=== PATIENT | female | born 1950 | race Caucasian/White ===

== ENCOUNTER 2023-12-22 17:43 | Observation (INO) | payer MEDICARE, BC, SELFPAY ==
[2023-12-22] VITALS (17 sets, daily range): BP systolic 143–193; BP diastolic 61–108; PULSE 66–116; RESP 13–28; TEMP 36.8; O2SAT 95–100; BMI 31.3
--- NOTE | 2023-12-22 17:50 | DI.RAD.S_ITS ---
PROCEDURE: XR CHEST 1V INDICATIONS: chest pain TECHNIQUE: One view of the chest was acquired. COMPARISON: None. FINDINGS: Surgical changes and devices: None. Lungs and pleura: Lungs are clear. No pleural effusions or pneumothorax. Mediastinum: Mediastinal contours appear normal. Heart size is normal. Bones and chest wall: No suspicious bony lesions. Overlying soft tissues appear unremarkable. IMPRESSION: No acute cardiopulmonary pathology. Dictated by: Jerry Franz M.D. on 12/22/2023 at 18:39 Approved by: Jerry Franz M.D. on 12/22/2023 at 18:39
--- NOTE | 2023-12-22 17:50 | EKG_ITS ---
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
--- NOTE | 2023-12-22 18:17 | ED.CHESTPAIN ---
HPI - Chest Pain General Chief Complaint: Chest Pain Stated Complaint: Poss Heart Attack Time Seen by Provider: 12/22/23 18:03 Source: patient and family Mode of arrival: Ambulatory Limitations: no limitations History of Present Illness HPI narrative: 73-year-old female with history of hypertension, hyperlipidemia presents by private vehicle from home for chest pain and shortness of breath that began at approximately 5:00 p.m.. Patient states that she was getting ready for dinner when she felt a pressure in the center of her chest and felt like it was hard to breathe. This lasted for about 30 minutes and resolved on its own. Patient has been chest pain-free since that event, but decided to present to the ER for evaluation. States that she was not have a history of heart disease, denies family history of heart disease. She has never seen a bone char kiln operator. Related Data Home Medications Medication Instructions Recorded Confirmed aspirin 81 mg tablet 81 mg PO DAILY 12/23/23 12/23/23 chlorthalidone 50 mg tablet mg DAILY 12/23/23 lisinopril 20 mg tablet mg 2XD 12/23/23 pravastatin 10 mg tablet mg 1XD 12/23/23 Allergies Allergy/AdvReac Type Severity Reaction Status Date / Time No Known Drug Allergies Allergy Verified 12/22/23 17:50 Patient History Medical History (Updated 12/23/23 @ 00:59 by Yanet Li DO) HLD (hyperlipidemia) HTN (hypertension) Social History household members: spouse Smoking Status: Never smoker Smoking Status: Never smoker alcohol intake frequency: a few times a week Substance Use Type: does not use Exam Initial Vital Signs Initial Vital Signs: Vital Signs Temperature 98.2 F 12/22/23 17:46 Pulse Rate 116 H 12/22/23 17:46 Respiratory Rate 28 H 12/22/23 17:46 Blood Pressure 193/108 H 12/22/23 17:46 Pulse Oximetry 100 12/22/23 17:46 Oxygen Delivery Method Room Air 12/22/23 17:46 Const: Awake, alert, no acute distress, nontoxic appearing Cardiac: Tachycardia, regular rhythm RESP: unlabored, clear bilaterally, no wheezing GI: Soft, nontender, nondistended, no rebound, no guarding MSK: Atraumatic, full range of motion, pulses equal Skin: Warm, Dry, intact, no rashes Neuro: AO x3, CN II-XII grossly intact, moves all extremities Course Orders Ordered: ED Orders 12/22/23 17:50 XR chest 1V Stat EKG-12 Lead Stat 12/22/23 18:12 Complete Blood Count AUTO DIFF Stat Comprehensive Metabolic Panel Stat Lipase Stat Magnesium Stat NT-proBNP (BNP-Adult 18+) Stat PTT Partial Thromboplastin Chad Stat Prothrombin Time INR Stat Troponin & CK Cardiac Panel Stat 12/22/23 19:36 Trop I [Troponin I] Stat 12/22/23 21:41 Trop I [Troponin I] Stat 12/22/23 22:34 CT angio chest PE protocol Stat Acetaminophen (Acetaminophen 325 Mg Tablet) 650 mg PO Q6H PRN PRN Reason: Fever/Mild Pain (1-3) Aspirin (Aspirin Ec 81 Mg Tablet) 81 mg PO DAILY MACK Bisacodyl (Bisacodyl 10 Mg Supp) 10 mg ME DAILY PRN PRN Reason: Constipation Docusate Sodium (Docusate 100 Mg Capsule) 100 mg PO BID MACK Enoxaparin Sodium (Enoxaparin 40 Mg/0.4 Ml Syringe) 40 mg SUBCUT DAILY MACK Morphine Sulfate (Morphine 2 Mg/Ml Inj) 2 mg IV Q5MIN PRN PRN Reason: Chest Pain Naloxone HCl (Naloxone 0.4 Mg/Ml Vial) 0.2 mg IV Q2MIN PRN PRN Reason: Opiate Reversal Nitroglycerin (Nitroglycerin 0.4 Mg Sl Tab) 0.4 mg SL R1ORLL2 PRN PRN Reason: Chest Pain Ondansetron HCl (Ondansetron 4 Mg Odt) 4 mg PO Q8HR PRN PRN Reason: Nausea And Vomiting Ondansetron HCl (Ondansetron 4 Mg/2 Ml Inj) 4 mg IV Q8HR PRN PRN Reason: Nausea And Vomiting Discontinued Medications Aspirin (Aspirin 81 Mg Chew Tab) 324 mg PO NOW ONE Stop: 12/22/23 17:51 Last Admin: 12/22/23 18:20 Dose: 324 mg Documented By: PUJA Vital Signs Vital signs: Vital Signs - 8 hr 12/22/23 17:46 12/22/23 17:54 12/22/23 18:00 Temperature 98.2 F Pulse Rate 116 H 112 H 102 H Respiratory Rate 28 H 23 19 Blood Pressure 193/108 H Pulse Oximetry 100 99 99 Oxygen Delivery Method Room Air Room Air 12/22/23 18:07 12/22/23 18:07 12/22/23 18:30 Temperature Pulse Rate 100 H 93 H Respiratory Rate 17 15 Blood Pressure 184/90 H Pulse Oximetry 99 99 Oxygen Delivery Method 12/22/23 18:30 12/22/23 19:00 12/22/23 19:00 Temperature Pulse Rate 91 H Respiratory Rate 13 Blood Pressure 172/86 H 170/86 H Pulse Oximetry 99 Oxygen Delivery Method 12/22/23 19:30 12/22/23 19:30 12/22/23 20:00 Temperature Pulse Rate 82 80 Respiratory Rate 14 17 Blood Pressure 160/80 H Pulse Oximetry 97 99 Oxygen Delivery Method 12/22/23 20:00 12/22/23 20:30 12/22/23 20:30 Temperature Pulse Rate 88 Respiratory Rate 18 Blood Pressure 181/89 H 175/90 H Pulse Oximetry 98 Oxygen Delivery Method 12/22/23 21:00 12/22/23 21:30 12/22/23 22:00 Temperature Pulse Rate 81 70 73 Respiratory Rate 13 13 Blood Pressure Pulse Oximetry 98 99 98 Oxygen Delivery Method 12/22/23 22:19 12/22/23 22:19 12/22/23 22:20 Temperature Pulse Rate 66 69 Respiratory Rate 13 15 Blood Pressure 157/71 H 157/71 H Pulse Oximetry 97 99 Oxygen Delivery Method Room Air 12/22/23 22:30 12/22/23 22:30 12/22/23 23:00 Temperature Pulse Rate 72 79 Respiratory Rate 14 13 Blood Pressure 143/61 H Pulse Oximetry 95 97 Oxygen Delivery Method 12/22/23 23:30 Temperature Pulse Rate 82 Respiratory Rate 18 Blood Pressure Pulse Oximetry 96 Oxygen Delivery Method MDM - Chest Pain Differential Diagnosis Differential diagnosis: Likely stable angina, atypical chest pain and costochondritis Lab Data 12/22/23 18:12 12/22/23 18:12 Labs: Lab Results 12/22/23 12/22/23 12/22/23 Range/Units 18:12 19:36 21:41 WBC 8.3 (4.5-11.0) X10^3/uL RBC 3.86 L (4.0-5.2) X10^6/uL Hgb 12.4 (12.0-16.0) g/dL Hct 36.4 (36-46) % MCV 94.1 (80-100) fL MCH 32.2 (26-34) PG MCHC 34.2 (30-36) % RDW 13.2 (11.6-14.8) % Plt Count 334 (150-400) X10^3/uL Neut % (Auto) 63.6 (50-75) % Lymph % (Auto) 25.3 (25-40) % [place] % (Auto) 8.1 (3-14) % Eos % (Auto) 1.9 L (2-4) % Baso % (Auto) 1.1 (0-2) % Neut # (Auto) 5300 (3047-6075) /uL Lymph # (Auto) 2100 (7016-9811) /uL [place] # (Auto) 700 (0-900) /uL Eos # (Auto) 200 (0-450) /uL Baso # (Auto) 100 (0-100) /uL PT 11.0 (9.4-12.5) SECONDS INR 1.0 (0.9-1.3) APTT 31 (25.1-36.5) SECONDS Sodium 135 L (137-145) mmol/L Potassium 4.0 (3.4-5.1) mmol/L Chloride 106 (98-107) mmol/L Carbon Dioxide 20 L (22-32) mmol/L BUN 29 H (7-17) mg/dL Creatinine 1.24 H (0.52-1.04) mg/dL Estimated GFR 46 L (>60) mL/min BUN/Creatinine Ratio 23.4 H (6-22) Glucose 117 H (80-110) mg/dL Calcium 9.4 (8.4-10.2) mg/dL Magnesium 2.1 (1.6-2.3) mg/dL Total Bilirubin 0.5 (0.2-1.3) mg/dL AST 28 (14-36) IU/L ALT 23 (<35) IU/L Alkaline Phosphatase 90 (38-126) U/L Total Creatine Kinase 97 (30-135) U/L Troponin I < 0.012 0.022 0.062 H (0.01-0.034) ng/mL NT-Pro-B Natriuret Pep 318 H (<125) pg/mL Total Protein 7.4 (6.3-8.2) g/dL Albumin 4.3 (3.5-5.0) g/dL Globulin 3.1 (1.7-4.1) g/dL Albumin/Globulin Ratio 1.4 (1.0-2.8) Lipase 182 (23-300) U/L Imaging Data CT scan - chest: Radiologist's Impression: PROCEDURE: CT ANGIO CHEST PE PROTOCOL INDICATIONS: DYSPNEA, CHEST PAIN TECHNIQUE: After the administration of intravenous contrast, 2 mm thick sections acquired from the pulmonary apices to the posterior costophrenic angles. 3-dimensional maximum intensity projection (MIP) coronal and sagittal reformats were then acquired through the thorax. For radiation dose reduction, the following was used: automated exposure control, adjustment of mA and/or kV according to patient size. COMPARISON: None. FINDINGS: Image quality: Diagnostic. Pulmonary arteries: Pulmonary arteries are normal in size, and demonstrate no intraluminal filling defects to suggest central pulmonary embolism. Lower Neck: No enlarged lymph nodes. Thyroid: No thyroid nodules which require sonographic follow up, per consensus guidelines. Axillae: No enlarged lymph nodes. Chest Wall: Unremarkable. Bones: No suspicious osseous lesion. Lungs and Pleura: No pneumothorax or pleural effusions. Minimal thickening at the right apex. No consolidation or suspicious nodules. Heart: Heart size is normal. No pericardial effusion. Thoracic Vessels: No aortic aneurysm. Mediastinum and Charlene: No enlarged lymph nodes. Esophagus: No wall thickening. Moderate hiatal hernia. Upper Abdomen: The stomach is mostly decompressed. Possible gastric wall thickening. There is a small nodule is posterior to the stomach at the hiatal hernia measuring 1.4 cm, (5/112). Rim calcification in the spleen has a benign appearance. IMPRESSION: 1. No pulmonary embolism. 2. No acute airspace opacity. 3. Moderate-sized hiatal hernia. Possible gastric wall thickening. 4. Small nodule posterior to the stomach. This could represent an abnormal lymph node. Also in the differential diagnosis is a small gastric diverticulum. Consider endoscopy or repeat CT scan with oral contrast in the stomach. Dictated by: Alexis Rowell M.D. on 12/23/2023 at 0:48 Approved by: Aelxis Rowell M.D. on 12/23/2023 at 0:56 ECG Data Interpretation: Sinus tachycardia at 103 beats per minute, normal ME, no ST T wave changes MDM Narrative Medical decision making narrative: Chest pain and shortness of breath, now resolved. Currently pain-free. Patient initially sinus tachycardia on the monitor, however she admits to being very nervous while she was in the emergency department. EKG shows sinus tachycardia without concerning ischemic findings. Cardiac workup initiated. Initial troponin undetectable, since patient presented less than 2 hours after onset of symptoms a 2 hour troponin level will be ordered. 2 hour troponin slightly elevated from prior at 0.022. Discussed with the patient, she agrees to stay for 3rd troponin measurement. Third troponin continues to increase slowly. CT angio shows no obvious findings. Plan to discuss case with on-call Cardiology Discussed case with on-call bone char kiln operator Dr. Franz, who recommended admission and stress test in the morning. Patient in agreement. We will admit for observation. Discharge Plan Departure Patient Disposition: Admitted as Observation Clinical Impression: Chest pain Qualifiers: Chest pain type: unspecified Qualified Code(s): R07.9 - Chest pain, unspecified Admit Date/Time: 12/22/23 23:47 Admit Provider: Yanet Li
[2023-12-22] MEDS: ASPIRIN 81 MG CHEW TAB 324 MG PO (18:20)
[2023-12-22 18:21] LABS: Add Manual Diff / Slide Review NO; Basophils Absolute Auto 100 /uL (0-100); Basophils Percent Auto 1.1 % (0-2); Eosinophils Absolute Auto 200 /uL (0-450); Eosinophils Percent Auto 1.9 % (2-4); Hematocrit 36.4 % (36-46); Hemoglobin 12.4 g/dL (12.0-16.0); Lymphocytes Absolute Auto 2100 /uL (1100-4500); Lymphocytes Percent Auto 25.3 % (25-40); Mean Corpuscular HGB Conc 34.2 % (30-36); Mean Corpuscular Hemoglobin 32.2 PG (26-34); Mean Corpuscular Volume 94.1 fL (80-100); Monocytes Absolute Auto 700 /uL (0-900); Monocytes Percent Auto 8.1 % (3-14); Neutrophils Absolute Auto 5300 /uL (1500-7000); Neutrophils Percent Auto 63.6 % (50-75); Platelet Count 334 X10^3/uL (150-400); Red Blood Cell Count 3.86 X10^6/uL (4.0-5.2); Red Cell Distribution Width 13.2 % (11.6-14.8); White Blood Cell Count 8.3 X10^3/uL (4.5-11.0)
[2023-12-22 18:31] LABS: PTT Partial Thromboplastin Tim 31 SECONDS (25.1-36.5)
[2023-12-22 18:35] LABS: Alanine Aminotransferase 23 IU/L (<35); Albumin 4.3 g/dL (3.5-5.0); Albumin Globulin Ratio 1.4 (1.0-2.8); Alkaline Phosphatase 90 U/L (38-126); Aspartate Aminotransferase 28 IU/L (14-36); BUN Creatinine Ratio 23.4 (6-22); Bilirubin Total 0.5 mg/dL (0.2-1.3); Blood Urea Nitrogen 29 mg/dL (7-17); Calcium 9.4 mg/dL (8.4-10.2); Carbon Dioxide 20 mmol/L (22-32); Chloride 106 mmol/L (98-107); Creatine Kinase 97 U/L (30-135); Estimated Glomerular Filt Rate 46 mL/min (>60); Globulin 3.1 g/dL (1.7-4.1); Glucose 117 mg/dL (80-110); HEMOLYSIS < 15 (0-50); Lipase 182 U/L (23-300); Magnesium 2.1 mg/dL (1.6-2.3); Sodium 135 mmol/L (137-145); Total Protein 7.4 g/dL (6.3-8.2)
[2023-12-22 18:46] LABS: NT-proBNP (BNP-Adult 18+) 318 pg/mL (<125); Troponin I < 0.012 ng/mL (0.01-0.034)
[2023-12-22 20:20] LABS: Troponin I 0.022 ng/mL (0.01-0.034)
--- NOTE | 2023-12-22 20:46 | PC.NURSE ---
no complaints of chest pain while ambulating around the Er
[2023-12-22 22:30] LABS: Troponin I 0.062 ng/mL (0.01-0.034)
--- NOTE | 2023-12-22 22:34 | DI.CT.S_ITS ---
PROCEDURE: CT ANGIO CHEST PE PROTOCOL INDICATIONS: DYSPNEA, CHEST PAIN TECHNIQUE: After the administration of intravenous contrast, 2 mm thick sections acquired from the pulmonary apices to the posterior costophrenic angles. 3-dimensional maximum intensity projection (MIP) coronal and sagittal reformats were then acquired through the thorax. For radiation dose reduction, the following was used: automated exposure control, adjustment of mA and/or kV according to patient size. COMPARISON: None. FINDINGS: Image quality: Diagnostic. Pulmonary arteries: Pulmonary arteries are normal in size, and demonstrate no intraluminal filling defects to suggest central pulmonary embolism. Lower Neck: No enlarged lymph nodes. Thyroid: No thyroid nodules which require sonographic follow up, per consensus guidelines. Axillae: No enlarged lymph nodes. Chest Wall: Unremarkable. Bones: No suspicious osseous lesion. Lungs and Pleura: No pneumothorax or pleural effusions. Minimal thickening at the right apex. No consolidation or suspicious nodules. Heart: Heart size is normal. No pericardial effusion. Thoracic Vessels: No aortic aneurysm. Mediastinum and Charlene: No enlarged lymph nodes. Esophagus: No wall thickening. Moderate hiatal hernia. Upper Abdomen: The stomach is mostly decompressed. Possible gastric wall thickening. There is a small nodule is posterior to the stomach at the hiatal hernia measuring 1.4 cm, (5/112). Rim calcification in the spleen has a benign appearance. IMPRESSION: 1. No pulmonary embolism. 2. No acute airspace opacity. 3. Moderate-sized hiatal hernia. Possible gastric wall thickening. 4. Small nodule posterior to the stomach. This could represent an abnormal lymph node. Also in the differential diagnosis is a small gastric diverticulum. Consider endoscopy or repeat CT scan with oral contrast in the stomach. Dictated by: Alexis Rowell M.D. on 12/23/2023 at 0:48 Approved by: Alexis Rowell M.D. on 12/23/2023 at 0:56
--- NOTE | 2023-12-22 23:52 | EKG_ITS ---
[facility] [address] [place] [address] Test Date: 2023-12-23 Pat Name: Stormy Jordan Department: [facility] Room: 216 Gender: Female Draw Hand: DARRON : 1950 Requested By: Order Number: [id number] Reading MD: Shmuel Ridley MD Measurements Intervals [place] Rate: 70 P: 16 SC: 192 QRS: -1 QRSD: 78 T: 28 QT: 410 QTc: 442 Interpretive Statements Normal sinus rhythm Electronically Signed On 12-23-2023 12:02:50 PDT by Shmuel Ridley MD
[2023-12-23] VITALS (9 sets, daily range): BP systolic 115–171; BP diastolic 51–83; PULSE 60–78; RESP 10–20; TEMP 36.4–37.3; O2SAT 96–99; BMI 31.3
--- NOTE | 2023-12-23 00:20 | P.HP_ITS ---
History of Present Illness History of Present Illness Date Patient Seen: 12/23/23 Time Patient Seen: 01:12 Date of Onset of Symptoms: 12/22/23 Chief complaint: chest pain Narrative: Discussed admission with Dr. López Getting ready to go out to dinner around 5pm with friends and had sudden onset of substernal chest pain pressure like with radiation and numbness to left jaw, associated SOB, that lasted 30 minutes with resolution on rest. No previous history of chest pain, not similar to GERD for which she is on Omeprazole, not associated with stress, activity, or food. Denies GI or symptoms. BP typically controlled at home with SBP 130 and DBP < 80. Denies history of HI, heart attack, cardiac cath, heart disease, stress test, renal failure, blood clot/hypercoagulable state, TIA/CVA. Notes that her last routine blood work did have elevated blood glucose without diagnosis of diabetes/IFG/prediabetes. She is visiting from [place]. Chest pain free at this time. ED course: Aspirin 324mg Cardiology consulted [facility] Medical History (Updated 12/23/23 @ 01:49 by Yanet Li DO) GERD (gastroesophageal reflux disease) HLD (hyperlipidemia) HTN (hypertension) Family History (Updated 12/23/23 @ 01:33 by Yanet Li DO) Father Hyperlipidemia Melanoma Mother TIA (transient ischemic attack) Social History household members: spouse Smoking Status: Never smoker Meds Home Medications and Allergies Home Medications Medication Instructions Recorded Confirmed Type aspirin 81 mg tablet 81 mg PO DAILY 12/23/23 12/23/23 History chlorthalidone 50 mg tablet mg DAILY 12/23/23 History lisinopril 20 mg tablet mg 2XD 12/23/23 History pravastatin 10 mg tablet mg 1XD 12/23/23 History Allergies Allergy/AdvReac Type Severity Reaction Status Date / Time No Known Drug Allergies Allergy Verified 12/22/23 17:50 Review of Systems Review of Systems ROS: Yes All systems reviewed with the patient and are negative except as otherwise documented Exam Vital Signs (past 8 hours): - 12/22/23 17:46 12/22/23 17:54 12/22/23 18:00 Temperature 98.2 F Pulse Rate 116 H 112 H 102 H Respiratory Rate 28 H 23 19 Blood Pressure 193/108 H Pulse Oximetry 100 99 99 Oxygen Delivery Method Room Air Room Air 12/22/23 18:07 12/22/23 18:07 12/22/23 18:30 Temperature Pulse Rate 100 H 93 H Respiratory Rate 17 15 Blood Pressure 184/90 H Pulse Oximetry 99 99 Oxygen Delivery Method 12/22/23 18:30 12/22/23 19:00 12/22/23 19:00 Temperature Pulse Rate 91 H Respiratory Rate 13 Blood Pressure 172/86 H 170/86 H Pulse Oximetry 99 Oxygen Delivery Method 12/22/23 19:30 12/22/23 19:30 12/22/23 20:00 Temperature Pulse Rate 82 80 Respiratory Rate 14 17 Blood Pressure 160/80 H Pulse Oximetry 97 99 Oxygen Delivery Method 12/22/23 20:00 12/22/23 20:30 12/22/23 20:30 Temperature Pulse Rate 88 Respiratory Rate 18 Blood Pressure 181/89 H 175/90 H Pulse Oximetry 98 Oxygen Delivery Method 12/22/23 21:00 12/22/23 21:30 12/22/23 22:00 Temperature Pulse Rate 81 70 73 Respiratory Rate 13 13 Blood Pressure Pulse Oximetry 98 99 98 Oxygen Delivery Method 12/22/23 22:20 Temperature Pulse Rate 69 Respiratory Rate 15 Blood Pressure 157/71 H Pulse Oximetry 99 Oxygen Delivery Method Room Air Oxygen Delivery Method Room Air Narrative Exam Narrative: Examined via telemedicine audio and visual with stethoscope and nurse at bedside GEN: NAD HEENT: moist mucous membranes, PERRLA NECK: trachea midline, no JVD CV: regular rate and rhythm, no murmurs PULM: clear bilaterally without crackles, wheeze ABD: soft per nursing palpation, nontender, nondistended EXT: warm and well perfused with no edema NEURO: awake, alert, oriented, no focal deficits Objective ECG Impression: Sinus tachycardia HR 103 bpm t-wave inversion V1, no significant contiguous changes Intervals [place] Rate: 103 P: 57 MT: 192 QRS: -17 QRSD: 78 T: 36 QT: 344 QTc: 450 Interpretive Statements Sinus tachycardia Imaging Chest x-ray: My impression: DARIEN Radiologist's impression: PROCEDURE: XR CHEST 1V INDICATIONS: chest pain TECHNIQUE: One view of the chest was acquired. COMPARISON: None. FINDINGS: Surgical changes and devices: None. Lungs and pleura: Lungs are clear. No pleural effusions or pneumothorax. Mediastinum: Mediastinal contours appear normal. Heart size is normal. Bones and chest wall: No suspicious bony lesions. Overlying soft tissues appear unremarkable. IMPRESSION: No acute cardiopulmonary pathology. Dictated by: Jerry Franz M.D. on 12/22/2023 at 18:39 Approved by: Jerry Franz M.D. on 12/22/2023 at 18:39 CT scan - chest: My impression: CTA chest, no gross pulmonary embolism Radiologist's impression: Pending Addendum: PROCEDURE: CT ANGIO CHEST PE PROTOCOL INDICATIONS: DYSPNEA, CHEST PAIN TECHNIQUE: After the administration of intravenous contrast, 2 mm thick sections acquired from the pulmonary apices to the posterior costophrenic angles. 3-dimensional maximum intensity projection (MIP) coronal and sagittal reformats were then acquired through the thorax. For radiation dose reduction, the following was used: automated exposure control, adjustment of mA and/or kV according to patient size. COMPARISON: None. FINDINGS: Image quality: Diagnostic. Pulmonary arteries: Pulmonary arteries are normal in size, and demonstrate no intraluminal filling defects to suggest central pulmonary embolism. Lower Neck: No enlarged lymph nodes. Thyroid: No thyroid nodules which require sonographic follow up, per consensus guidelines. Axillae: No enlarged lymph nodes. Chest Wall: Unremarkable. Bones: No suspicious osseous lesion. Lungs and Pleura: No pneumothorax or pleural effusions. Minimal thickening at the right apex. No consolidation or suspicious nodules. Heart: Heart size is normal. No pericardial effusion. Thoracic Vessels: No aortic aneurysm. Mediastinum and Charlene: No enlarged lymph nodes. Esophagus: No wall thickening. Moderate hiatal hernia. Upper Abdomen: The stomach is mostly decompressed. Possible gastric wall thickening. There is a small nodule is posterior to the stomach at the hiatal hernia measuring 1.4 cm, (5/112). Rim calcification in the spleen has a benign appearance. IMPRESSION: 1. No pulmonary embolism. 2. No acute airspace opacity. 3. Moderate-sized hiatal hernia. Possible gastric wall thickening. 4. Small nodule posterior to the stomach. This could represent an abnormal lymph node. Also in the differential diagnosis is a small gastric diverticulum. Consider endoscopy or repeat CT scan with oral contrast in the stomach. Dictated by: Alexis Rowell M.D. on 12/23/2023 at 0:48 Approved by: Alexis Rowell M.D. on 12/23/2023 at 0:56 Labs 12/22/23 18:12 12/22/23 18:12 Labs: Laboratory Results - last 24 hr 12/22/23 12/22/23 12/22/23 18:12 19:36 21:41 WBC 8.3 RBC 3.86 L Hgb 12.4 Hct 36.4 MCV 94.1 MCH 32.2 MCHC 34.2 RDW 13.2 Plt Count 334 Neut % (Auto) 63.6 Lymph % (Auto) 25.3 [place] % (Auto) 8.1 Eos % (Auto) 1.9 L Baso % (Auto) 1.1 Neut # (Auto) 5300 Lymph # (Auto) 2100 [place] # (Auto) 700 Eos # (Auto) 200 Baso # (Auto) 100 PT 11.0 INR 1.0 APTT 31 Sodium 135 L Potassium 4.0 Chloride 106 Carbon Dioxide 20 L BUN 29 H Creatinine 1.24 H Estimated GFR 46 L BUN/Creatinine Ratio 23.4 H Glucose 117 H Calcium 9.4 Magnesium 2.1 Total Bilirubin 0.5 AST 28 ALT 23 Alkaline Phosphatase 90 Total Creatine Kinase 97 Troponin I < 0.012 0.022 0.062 H NT-Pro-B Natriuret Pep 318 H Total Protein 7.4 Albumin 4.3 Globulin 3.1 Albumin/Globulin Ratio 1.4 Lipase 182 Assessment & Plan Assessment and plan (1) Chest pain: Problem details: HTN, HLD Qualifiers: Chest pain type: unspecified Qualified Code(s): R07.9 - Chest pain, unspecified Status: Acute Plan: Troponin < 0.012, 0.022, 0.062 BNP 318 without evidence of hypervolemic state EKG without evidence of ACS, no indication for heparin gtt at this point CXR NAP CTA pending Cardiology lathe operator contact lens consulted, recommends observation with serial CE, cardiac monitoring, nuclear stress in am DDx: ACS, rate and hypertension mediated cardiac strain, non-cardiac chest pain, GERD Serial CE, serial EKG, cardiac monitoring Continue home Aspirin 81mg Morphine, NTG prn chest pain BP control Nuclear stress in am (2) HTN (hypertension): Status: Acute Plan: Hold home Chlorthalidone (unsure of dose 25 or 50mg daily) and Lisinopril 20mg BID until reassessment of renal function with am labs. BP trending down with supportive care, if remains elevated will initiate renal sparing anti- hypertensive. (3) HLD (hyperlipidemia): Status: Acute Plan: Continue home Pravastatin 10mg, lipid panel pending (4) Hyperglycemia: Status: Acute Plan: Suspect reactive, judicious monitoring, A1c ordered (5) Hyponatremia: Status: Acute Plan: mild, encourage adequate oral intake, serial monitoring (6) GERD (gastroesophageal reflux disease): Status: Acute Plan: Continue home PPI equivalent Addendum: CTA resulted - Moderate-sized hiatal hernia. Possible gastric wall thickening. Monitor for signs of uncontrolled GERD. Plan Creatinine 1.24, unknown baseline, CKD vs REGAN, serial monitoring, avoid heaven- toxic agents Time-Based Coding :: [TOTAL MINUTES] spent with patient and on the chart (including review of chart, obtaining history, exam, reviewing outside data, placing orders, documenting exam and treatment plan, and counseling patient) on [DATE].
[2023-12-23 03:40] LABS: Add Manual Diff / Slide Review NO; Basophils Absolute Auto 100 /uL (0-100); Basophils Percent Auto 0.6 % (0-2); Eosinophils Absolute Auto 200 /uL (0-450); Eosinophils Percent Auto 2.6 % (2-4); Hematocrit 33.7 % (36-46); Hemoglobin 11.5 g/dL (12.0-16.0); Lymphocytes Absolute Auto 3000 /uL (1100-4500); Lymphocytes Percent Auto 35.4 % (25-40); Mean Corpuscular HGB Conc 34.2 % (30-36); Mean Corpuscular Hemoglobin 32.2 PG (26-34); Mean Corpuscular Volume 94.2 fL (80-100); Monocytes Absolute Auto 900 /uL (0-900); Neutrophils Absolute Auto 4400 /uL (1500-7000); Neutrophils Percent Auto 51.4 % (50-75); Platelet Count 305 X10^3/uL (150-400); Red Blood Cell Count 3.57 X10^6/uL (4.0-5.2); Red Cell Distribution Width 13.4 % (11.6-14.8); White Blood Cell Count 8.5 X10^3/uL (4.5-11.0)
[2023-12-23 03:56] LABS: BUN Creatinine Ratio 23.4 (6-22); Blood Urea Nitrogen 26 mg/dL (7-17); Calcium 9.3 mg/dL (8.4-10.2); Carbon Dioxide 26 mmol/L (22-32); Chloride 108 mmol/L (98-107); Estimated Glomerular Filt Rate 52 mL/min (>60); Glucose 93 mg/dL (80-110); HEMOLYSIS < 15 (0-50); Sodium 136 mmol/L (137-145)
[2023-12-23 03:57] LABS: Cholesterol 210 mg/dL (140-199); HDL Cholesterol 67 mg/dL (40-60); LDL Cholesterol Calculated 130 mg/dL (<100); Triglycerides 66 mg/dL (35-150)
[2023-12-23 04:08] LABS: Troponin I 0.075 ng/mL (0.01-0.034)
[2023-12-23 04:19] LABS: Hemoglobin A1C% w Est Avg Glu 5.6 % (4.0-6.0)
[2023-12-23] MEDS: PANTOPRAZOLE DR 20 MG TABLET PO (06:22)
--- NOTE | 2023-12-23 08:12 | DI.ECHO.S_ITS ---
[place] +---------+ Hospital : : [address] : : [place] : : [id number] : : Phone: [phone] Echocardiogram Report + + :Name: MANISH MORRELL Study Date: 12/23/2023 Height: 67 in : :[facility] ReadingLocation: Weight: 197 lb : : Gender: Female BSA: 2.0 m2 : :: 1950 Age: 73 yrs BP: 120/59 mmHg: :Reason For Study: CHEST PAIN : :Ordering Physician: DEMIAN, : :DAVEY Mccarty Performed By: Nikita Capone : :Referring: DAVEY ARCINIEGA : + + Interpretation Summary 1. The left ventricular contractility is normal. Estimated ejection fraction is greater than 55% with no segmental wall motion abnormalities. No LVH. Grade 1 diastolic dysfunction. 2. The right ventricular contractility is normal. 3. The left atrium is mildly dilated. All of the cardiac chambers appear to be of normal size. 4. No significant valvular abnormalities. 5. No obvious intracardiac shunts. 6. No obvious intracardiac masses or thrombi. 7. No hemodynamically significant pericardial effusion. Conclusion: Normal biventricular systolic function with no significant valvular abnormalities. Procedure: A two-dimensional transthoracic echocardiogram with color flow and Doppler was performed. The study quality was technically adequate. There is no prior echocardiogram noted for this patient. The patient was in normal sinus rhythm during the exam. The heart rate ranged between 65-73 bpm during the study. Left Ventricle: The left ventricle is normal in size and wall thickness. The ejection fraction is estimated to be 55-60%. Right Ventricle: The right ventricle is normal size. The right ventricular systolic function is normal. Atria: The left atrium is mildly dilated. Right atrial size is normal. The interatrial septum grossly appears intact with no obvious evidence for an atrial septal defect. Mitral Valve: The mitral valve is normal. There is no mitral valve stenosis. There is no mitral regurgitation noted. Aortic Valve: The aortic valve is trileaflet. There is no aortic valve stenosis. No aortic regurgitation is present. Tricuspid Valve: The tricuspid valve is normal. There is no tricuspid stenosis. No tricuspid regurgitation. Pulmonic Valve: The pulmonic valve is not well visualized. There is no pulmonic valvular stenosis. There is no pulmonic valvular regurgitation. Great Vessels: The aortic root is normal size. The dimensions of the ascending aorta are normal. The IVC is of normal diameter and collapses greater than 50% with a sniff. This suggests a low right atrial pressure of 3 mm Hg. Pericardium/ Pleura There is no pericardial effusion. There is no pleural effusion. MMode/2D Measurements & Calculations LVIDd: 5.1 cm LVOT diam: 2.0 cm LVIDs: 3.7 cm Ao root diam: 2.8 cm FS: 26.2 % Ao Arch Diam (Prox Trans): 2.2 cm IVSd: 0.92 cm LVPWd: 0.88 cm LV rodriguez. diameter/BSA (cm/m^2): 2.5 LV sys. diameter/BSA (cm/m^2): 1.9 LA A2 area: 26.3 cm2 RA long axis: 3.8 cm LA A4 area: 21.9 cm2 RA area: 11.9 cm2 LA length (vol): 5.9 cm RA vol: 32.1 ml LA vol: 82.8 ml RA : 16.0 ml/m2 LA vol index: 41.2 ml/m2 IVC diam: 2.3 cm RVD1 (basal): 3.4 cm RVD2 (mid): 2.9 cm TAPSE: 2.3 cm Doppler Measurements & Calculations Ao V2 max: 148.3 cm/sec LVOT Max Danial: 91.9 cm/sec Ao V2 mean: 106.2 cm/sec LV V1 max P.4 mmHg Ao max P.8 mmHg LV V1 VTI: 21.6 cm Ao mean P.2 mmHg JUAN(I,D): 2.0 cm2 Ao V2 VTI: 36.0 cm JUAN(V,D): 2.0 cm2 sev ratio: 0.60 JUAN indexed to BSA (cm^2/m^2): 0.99 MV E max danial: 76.2 cm/sec PA V2 max: 104.2 cm/sec MV A max danial: 82.6 cm/sec PA V2 mean: 68.8 cm/sec MV E/A: 0.92 PA mean P.2 mmHg Med Peak E' Danial: 7.1 cm/sec PA pr(Accel): 31.0 mmHg E/E' med: 10.8 Lat Peak E' Danial: 9.3 cm/sec E/E' lat: 8.2 E/e' average: 9.5 MV dec time: 0.16 sec SV(LVOT): 71.2 ml Reading Physician:
--- NOTE | 2023-12-23 08:14 | P.PN_ITS ---
Subjective Subjective Interval history: Summary: Patient was admitted with chest pain. She was no known history of CAD and had a negative CTA PE. Her electrocardiogram is normal and her troponins were minimally elevated. She was scheduled for stress test today which was canceled due to capacity being exceeded. Subjective: No further pain today. No history of recurrent exertional dyspnea or chest pain symptoms. Understands that she will have to wait until tomorrow for a stress test. She was willing to stay. Exam Vital Signs (past 8 hours): - 12/23/23 00:36 12/23/23 00:40 12/23/23 04:00 Temperature 97.8 F 97.5 F L Pulse Rate 78 73 64 Respiratory Rate 20 20 Blood Pressure 171/83 H 165/77 H 129/69 Pulse Oximetry 99 99 Oxygen Delivery Method Room Air Narrative Exam Narrative: NAD, alert and oriented. Fluent speech. Lungs are clear, normal rate and effort. Heart is regular, soft systolic murmur over the mitral valve and no gallop or rub. Abdomen is soft, non distended. Extremities are free of edema. Objective Imaging Multiple studies:: My impression: Sinus tachycardia Radiologist's impression: CTA: 1. No pulmonary embolism. 2. No acute airspace opacity. 3. Moderate-sized hiatal hernia. Possible gastric wall thickening. 4. Small nodule posterior to the stomach. This could represent an abnormal lymph node. Also in the differential diagnosis is a small gastric diverticulum. Consider endoscopy or repeat CT scan with oral contrast in the stomach. Chest x-ray: No acute cardiopulmonary pathology. Labs 12/23/23 03:25 12/23/23 03:25 Labs: Laboratory Results - last 24 hr 12/22/23 12/22/23 12/22/23 18:12 19:36 21:41 WBC 8.3 RBC 3.86 L Hgb 12.4 Hct 36.4 MCV 94.1 MCH 32.2 MCHC 34.2 RDW 13.2 Plt Count 334 Neut % (Auto) 63.6 Lymph % (Auto) 25.3 [place] % (Auto) 8.1 Eos % (Auto) 1.9 L Baso % (Auto) 1.1 Neut # (Auto) 5300 Lymph # (Auto) 2100 [place] # (Auto) 700 Eos # (Auto) 200 Baso # (Auto) 100 PT 11.0 INR 1.0 APTT 31 Sodium 135 L Potassium 4.0 Chloride 106 Carbon Dioxide 20 L BUN 29 H Creatinine 1.24 H Estimated GFR 46 L BUN/Creatinine Ratio 23.4 H Glucose 117 H Hemoglobin A1c Calcium 9.4 Magnesium 2.1 Total Bilirubin 0.5 AST 28 ALT 23 Alkaline Phosphatase 90 Total Creatine Kinase 97 Troponin I < 0.012 0.022 0.062 H NT-Pro-B Natriuret Pep 318 H Total Protein 7.4 Albumin 4.3 Globulin 3.1 Albumin/Globulin Ratio 1.4 Triglycerides Cholesterol LDL Cholesterol, Calc HDL Cholesterol Lipase 182 12/23/23 03:25 WBC 8.5 RBC 3.57 L Hgb 11.5 L Hct 33.7 L MCV 94.2 MCH 32.2 MCHC 34.2 RDW 13.4 Plt Count 305 Neut % (Auto) 51.4 Lymph % (Auto) 35.4 [place] % (Auto) 10.0 Eos % (Auto) 2.6 Baso % (Auto) 0.6 Neut # (Auto) 4400 Lymph # (Auto) 3000 [place] # (Auto) 900 Eos # (Auto) 200 Baso # (Auto) 100 PT INR APTT Sodium 136 L Potassium 4.0 Chloride 108 H Carbon Dioxide 26 BUN 26 H Creatinine 1.11 H Estimated GFR 52 L BUN/Creatinine Ratio 23.4 H Glucose 93 Hemoglobin A1c 5.6 Calcium 9.3 Magnesium Total Bilirubin AST ALT Alkaline Phosphatase Total Creatine Kinase Troponin I 0.075 H NT-Pro-B Natriuret Pep Total Protein Albumin Globulin Albumin/Globulin Ratio Triglycerides 66 Cholesterol 210 H LDL Cholesterol, Calc 130 H HDL Cholesterol 67 H Lipase [facility] Medical History GERD (gastroesophageal reflux disease) HLD (hyperlipidemia) HTN (hypertension) Family History Father Hyperlipidemia Melanoma Mother TIA (transient ischemic attack) Social History household members: spouse Smoking Status: Never smoker Assessment & Plan Assessment & Plan narrative: 1. Transient chest pain, present on admission and improved. 2. Hypertension, present on admission and stable. 3. Hyperlipidemia, present on admission and stable. 4. Hyperglycemia, present on admission and active. 5. GERD, present on admission and active. Plan: -stress test is not available today. -2D echo to rule out wall motion abnormalities and assess mitral valve murmur. -out of bed and ambulate. LE is December 23 pending results of stress test and echo. Time-Based Coding :: 20 minspent with patient and on the chart (including review of chart, obtaining history, exam, reviewing outside data, placing orders, documenting exam and treatment plan, and counseling patient) on 12/21.
[2023-12-23 08:32] LABS: Troponin I 0.049 ng/mL (0.01-0.034)
[2023-12-23] MEDS: ASPIRIN EC 81 MG TABLET PO (09:06)
--- NOTE | 2023-12-23 12:14 | CM.DANOTE ---
Patient is a 73 yo female who was admitted OBS Status on 12/22/23 for Chest Pain r/o. Pt has MCR and BCBS OUT [employer] for insurance and her PCP is in [place]. EMR was reviewed. Per MD, pt to have a Nuclear Stress Test to r/o any cardio issues and stress test not available until tomorrow. SW met bedside with pt and spouse and explained role and they confirm that their permanent house is in [place] but the past few years they come up to [place] in their RV and stay right outside of [place] at [facility] and still plan to stay until Sept as long as her stress test results are not concerning. Pt is active and independent at baseline and does not use DME for ambulation and drives and spouse very capable of assist if needed. Pt confirms that she has been independent in the room and steady gait when mobilizing. Pt and spouse do not anticipate any needs if test results normal and preference is back to their RV at discharge. SW answered some of their Observation Status questions and pt and spouse very appreciative. Plan: SW to follow closely for stress test tomorrow when available and confirm safe plan of home with spouse and any further identified discharge planning needs. LATONIA Argueta Discharge Planning/Care Management CM Discharge Assessment Start: 12/23/23 12:09 Freq: Status: Active Protocol: Document 12/23/23 12:10 BF (Rec: 12/23/23 12:14 [id number]) Discharge Planning Assessment Assigned Skiver Operator LATONIA Cardenas DPOA/Assigned Designee Name spouse Advance Directives? No Advance Directives on File No History Provided By Patient,Significant Other, Medical Record Has Patient been admitted in last 30 No days? Prior Living Arrangements RV Household Members spouse Type of transporation used prior to Drives own vehicle admit Independent with ADL's Yes Is patient alert and oriented? Yes Caregiver for Another No Barriers to Discharge No Discharge Plan Home Transportation Arrangement spouse bedside and can transport at d/c Referrals Initiated None needed Whiteboard Updated in Patient Room with Yes name and ext. # of Skiver Operator Review Status In Process Please Provide Date Initial DC 12/23/23 Assessment Was Performed Next Review Type Continued Stay Review
[2023-12-23] MEDS: PRAVASTATIN 20 MG TABLET 10 MG PO (20:47)
[2023-12-24 03:00] VITALS: BP 122/68; PULSE 64; RESP 20; TEMP 36.2; O2SAT 100
[2023-12-24 06:40] LABS: Hematocrit 38.2 % (36-46); Hemoglobin 12.9 g/dL (12.0-16.0); Mean Corpuscular HGB Conc 33.8 % (30-36); Mean Corpuscular Hemoglobin 31.7 PG (26-34); Mean Corpuscular Volume 93.8 fL (80-100); Platelet Count 351 X10^3/uL (150-400); Red Blood Cell Count 4.07 X10^6/uL (4.0-5.2); White Blood Cell Count 7.5 X10^3/uL (4.5-11.0)
[2023-12-24 06:47] LABS: BUN Creatinine Ratio 21.9 (6-22); Blood Urea Nitrogen 23 mg/dL (7-17); Calcium 9.9 mg/dL (8.4-10.2); Carbon Dioxide 25 mmol/L (22-32); Chloride 106 mmol/L (98-107); Estimated Glomerular Filt Rate 56 mL/min (>60); Glucose 95 mg/dL (80-110); HEMOLYSIS < 15 (0-50); Potassium 4.1 mmol/L (3.4-5.1); Sodium 138 mmol/L (137-145)
[2023-12-24 08:00] VITALS: BP 123/65; PULSE 68; RESP 16; TEMP 36.8; O2SAT 98
[2023-12-24] MEDS: ASPIRIN EC 81 MG TABLET PO (09:11)
[2023-12-24 12:00] VITALS: BP 140/68; PULSE 74; RESP 16; TEMP 36.7; O2SAT 100
--- NOTE | 2023-12-24 12:59 | P.DS_ITS ---
History of Present Illness History of Present Illness Chief complaint: chest pain Narrative: From H&P: Getting ready to go out to dinner around 5pm with friends and had sudden onset of substernal chest pain pressure like with radiation and numbness to left jaw, associated SOB, that lasted 30 minutes with resolution on rest. No previous history of chest pain, not similar to GERD for which she is on Omeprazole, not associated with stress, activity, or food. Denies GI or symptoms. BP typically controlled at home with SBP 130 and DBP < 80. Denies history of VT, heart attack, cardiac cath, heart disease, stress test, renal failure, blood clot/hypercoagulable state, TIA/CVA. Notes that her last routine blood work did have elevated blood glucose without diagnosis of diabetes/IFG/prediabetes. She is visiting from [place]. Chest pain free at this time. ED course: Aspirin 324mg Cardiology consulted Discharge Providers Provider Date of admission: 12/22/23 23:47 Discharge Date: 12/24/23 Consults: Tele consult from ED with cardiology. Discharge provider: Jef Garcia MD Summary Hospital Course Discharge Diagnosis: 1. Transient chest pain, present on admission and improved. Normal echo and low risk nuclear stress test. 2. Hypertension, present on admission and stable. 3. Hyperlipidemia, present on admission and stable. 4. Hyperglycemia, present on admission and active. 5. GERD, present on admission and active. Hospital Course: The patient was admitted with chest pain. She would negative enzymes and an unremarkable ECG. She had no history of CAD and underwent a stress test on December 23, this was not available on December 22. This study was read as low risk. She did have PVCs, worse at risk and with exertion. The case was discussed with Cardiology at that point as well. She was felt to be stable for discharge home with close follow up. There is no apparent indication of cardiac issues or need for further intervention. Status at Discharge Cognitive/behavioral status at discharge: oriented Functional status at discharge: independent ambulation Overall status at discharge: patient is back to baseline Time Spent with Patient Time spent: Greater than 30 minutes Exam Vital Signs (past 8 hours): - 12/24/23 08:00 Temperature 98.2 F Pulse Rate 68 Respiratory Rate 16 Blood Pressure 123/65 Pulse Oximetry 98 Oxygen Flow Rate 0 Oxygen Delivery Method Room Air Oxygen Flow Rate 0 Narrative Exam Narrative: NAD, alert and oriented. Fluent speech. Lungs are clear, normal rate and effort. Heart is regular, no murmur gallop or rub. Abdomen is soft, non distended. Extremities are free of edema. Objective ECG Impression: Normal sinus rhythm Imaging Chest x-ray: Radiologist's impression: No acute cardiopulmonary pathology. CT scan - chest: Radiologist's impression: CTA: 1. No pulmonary embolism. 2. No acute airspace opacity. 3. Moderate-sized hiatal hernia. Possible gastric wall thickening. 4. Small nodule posterior to the stomach. This could represent an abnormal lymph node. Also in the differential diagnosis is a small gastric diverticulum. Consider endoscopy or repeat CT scan with oral contrast in the stomach. Stress test, Nuclear:: Radiologist's impression: Verbal report with Dr. edmond, cardiology. Low risk study. She would PVCs at rest which resolved with exertion. He felt this was reassuring symptom. Echo: Radiologist's impression: 1. The left ventricular contractility is normal. Estimated ejection fraction is greater than 55% with no segmental wall motion abnormalities. No LVH. Grade 1 diastolic dysfunction. 2. The right ventricular contractility is normal. 3. The left atrium is mildly dilated. All of the cardiac chambers appear to be of normal size. 4. No significant valvular abnormalities. 5. No obvious intracardiac shunts. 6. No obvious intracardiac masses or thrombi. 7. No hemodynamically significant pericardial effusion. Conclusion: Normal biventricular systolic function with no significant valvular abnormalities. Labs 12/24/23 06:05 12/24/23 06:05 Labs: Laboratory Results - last 24 hr 12/24/23 06:05 WBC 7.5 RBC 4.07 Hgb 12.9 Hct 38.2 MCV 93.8 MCH 31.7 MCHC 33.8 RDW 13.0 Plt Count 351 Sodium 138 Potassium 4.1 Chloride 106 Carbon Dioxide 25 BUN 23 H Creatinine 1.05 H Estimated GFR 56 L BUN/Creatinine Ratio 21.9 Glucose 95 Calcium 9.9 [facility] Medical History GERD (gastroesophageal reflux disease) HLD (hyperlipidemia) HTN (hypertension) Family History Father Hyperlipidemia Melanoma Mother TIA (transient ischemic attack) Social History household members: spouse Smoking Status: Never smoker Discharge Assessment & Plan Assessment and Plan Assessment: 1. Transient chest pain, present on admission and improved. Normal echo and low risk nuclear stress test. Plan of Treatment: Stable for discharge home with close follow up. Discharge Plan Discharge Plan Patient Disposition: Home Provider Discharge Comment: Normal troponins, ECG, echo, and stress test. Reassured that chest pain pain is atypical. Stable for discharge. Discharge orders & Medications Prescriptions: Continued chlorthalidone 50 mg tablet 50 mg PO DAILY Patient Comments: [NO ORIGINAL SIG] lisinopril 20 mg tablet 20 mg PO BID Patient Comments: [NO ORIGINAL SIG] pravastatin 10 mg tablet 10 mg PO DAILY Patient Comments: [NO ORIGINAL SIG] aspirin 81 mg Tablet 81 mg PO DAILY omeprazole 20 mg capsule,delayed release(DR/EC) 20 mg PO DAILY@0600 Patient Comments: [NO ORIGINAL SIG] Discharge Health Status Multidrug resistant organism: No MDRO Diet/Activity/Treatments Diet: Regular Visit Report/Discharge Packet Instructions: DI for Chest Pain Stand Alone Forms: Patient Portal/API Discharge Data Attending Provider: Yanet Li Admit Date/Time: 12/22/23 23:47 Quality MIPS - DC The patient has a history of heart transplant or Left Ventricular Assist Device (LVAD). If yes, STOP here.: No The patient has current or prior documentation of left ventricular ejection fraction (LVEF) less than or equal to 40%, or moderate or severely depressed left ventricular systolic function.: No
--- NOTE | 2023-12-24 15:34 | CM.DPC ---
DCP Discharge Home Per MD, pt had her nuc stress test today and results were read and pt medically stable to discharge home with outpt f/u. Spouse was bedside and transported pt back to their RV at [facility] and they still plan to go back to [place] in Jan and no needs identified. Per Rn, discharge instructions provided and no concerns noted. LATONIA Argueta
--- NOTE | 2023-12-24 19:30 | DI.NM.S_ITS ---
DATE OF SERVICE: 12/24/2023 EXERCISE PERFUSION STUDY INDICATIONS: Chest pain with underlying CAD. RADIOPHARMACEUTICAL: 27.5 millicurie technetium-99m Myoview IV was injected at stress and 11 millicurie technetium-99m Myoview IV was injected at rest. CARDIAC STRESS: The patient underwent exercise perfusion study under the supervision of an attending staff. She walked on Branden protocol for 4 minutes and 57 seconds, achieved maximum heart rate of 160, which was 110% of target heart rate, 7 METS of workload, CHRISTINA positive 7%. Baseline blood pressure 148/80 and peak blood pressure 174/78 with normal blood pressure response. Baseline rhythm sinus with intermittent PVCs including ventricular bigeminy, occasional ventricular couplets. During stress, PVCs got completely suppressed. No ischemic electrocardiographic changes. The patient did not have any chest pain. [place] dyspnea during stress. RAW DATA: There is an increased subdiaphragmatic activity. GATED STUDY: Resting LV ejection fraction 83% and stress LV ejection fraction 86% without any obvious wall motion abnormalities. Resting end- diastolic volume 93 mL. TID ratio 0.86 which is within normal limits. Lung/heart ratio 0.35, which is within normal limits. MYOCARDIAL PERFUSION: Stress supine, resting supine, and stress prone images were compared to each other. Stress supine and resting supine images revealed moderate size, mild to moderately decreased perfusion of inferior wall extending into the inferior apex as well as distal anterior wall which got completely resolved during stress prone images suggestive of tissue attenuation artifact. No convincing ischemia, infarction during stress prone images. CONCLUSION: I will call this study a normal myocardial perfusion study with evidence of tissue attenuation artifact which got improved during stress prone images. Diminished exercise tolerance. Normal hemodynamic response. Resting frequent PVCs including some ventricular couplets, which got completely suppressed during exercise. Preserved left ventricular function. No chest pain. Had some shortness of breath. Overall, low-risk myocardial perfusion scan. Stormy Jordan JEN/becky/KEARA doc#: [id number]/job#: [id number] dd: 12/24/2023 12:54:00 dt: 12/24/2023 19:18:00 DICTATING MD/COPIES TO: Charles Jones MD COPIES MNE: HAROON;
== END 2023-12-24 13:45 | disposition home or self-care (01) ==
LOC: ED 23:47 → AC 23:48
PROVIDERS: Hospitalist; Student in an Organized Health Care Education/Training Program; Admitting Provider Internal Medicine; Emergency Provider Emergency Medicine; Referring Provider Emergency Medicine; Visit Provider Internal Medicine
DX: R07.9 Chest pain, unspecified (principal); R06.02 Shortness of breath; I10 Essential (primary) hypertension; E78.5 Hyperlipidemia, unspecified; K21.9 Gastro-esophageal reflux disease without esophagitis
CPT/HCPCS: 36415; 71045; 71275; 78452; 80048; 80053; 80061; 82550; 83036; 83690; 83735; 83880; 84484; 85025; 85027; 85610; 85730; 93005; 93010; 93017; 93306; 99284; 99285; G0378; A9502; Q9967

== ENCOUNTER 2024-11-20 09:09 | Emergency (ER) | payer MEDICARE, BC, SELFPAY ==
[2023-12-23 00:39] VITALS: BMI 31.3
[2024-11-20] VITALS (8 sets, daily range): BP systolic 136–162; BP diastolic 69–77; PULSE 70–91; RESP 17–25; TEMP 36.6; O2SAT 93–99; BMI 31.8
[2024-11-20 09:44] LABS: Add Manual Diff / Slide Review NO; Hematocrit 38.8 % (36-46); Hemoglobin 13.0 g/dL (12.0-16.0); Lymphocytes Absolute Auto 1500 /uL (1100-4500); Mean Corpuscular HGB Conc 33.6 % (30-36); Mean Corpuscular Hemoglobin 31.3 PG (26-34); Mean Corpuscular Volume 93.0 fL (80-100); Platelet Count 325 X10^3/uL (150-400)
--- NOTE | 2024-11-20 09:49 | ED.GIBLEED ---
HPI - GI Bleed General Chief complaint: GI Bleed Stated complaint: rectal bleeding x 1 day Time Seen by Provider: 11/20/24 09:48 Source: patient, RN notes reviewed and old records reviewed Mode of arrival: Ambulatory Limitations: no limitations History of Present Illness HPI Narrative: 74-year-old female history of hypertension, dyslipidemia, GERD on aspirin 81 mg daily who presents with complaint of bright red blood in her stool for the past day patient also notes suprapubic pain. Patient has had diarrhea 3 or 4 times over the past 12-24 hours. States each time she was noticed bright red blood which she describes as a lot, states there maybe some small clots, she states she can see through the water in the toilet and sees the blood at the bottom. States there has been minimal amount of diarrhea with these but some stool. Patient notes that she will have some discomfort that is intermittent but seems to be associated with bowel movements or the need to have a bowel movement that is been suprapubic. She denies any rectal pain. Denies fevers or chills. No chest pain or shortness of breath. No nausea or vomiting. Denies any dysuria urgency or frequency. States she has not had similar symptoms in the past. States she was had Cologuard test in the past which were negative x2. Denies prior colonoscopy. Denies any prior surgeries. Has not had similar in the past. No tobacco, occasional alcohol, no recreational drugs. No reported drug allergies. Patient lives in [place] but comes to the area regularly. Related Data Home Medications ?Medication ?Instructions ?Recorded ?Confirmed aspirin 81 mg tablet 81 mg PO DAILY 12/23/23 12/23/23 chlorthalidone 50 mg tablet 50 mg PO DAILY 12/23/23 12/23/23 lisinopril 20 mg tablet 20 mg PO BID 12/23/23 12/23/23 omeprazole 20 mg capsule,delayed 20 mg PO DAILY@0600 12/23/23 12/23/23 release pravastatin 10 mg tablet 10 mg PO DAILY 12/23/23 12/23/23 Previous Rx's ?Medication ?Instructions ?Recorded prednisone 20 mg tablet 40 mg (2 x 20 mg) PO DAILY 5 days 11/20/24 #10 tabs Allergies Allergy/AdvReac Type Severity Reaction Status Date / Time No Known Drug Allergies Allergy Verified 11/20/24 09:20 Review of Systems Review of Systems ROS Unobtainable: All systems reviewed & are unremarkable except as noted in HPI and below Patient History Medical History GERD (gastroesophageal reflux disease) HLD (hyperlipidemia) HTN (hypertension) Family History Father Hyperlipidemia Melanoma Mother TIA (transient ischemic attack) Social History household members: spouse Smoking Status: Never smoker Smoking Status: Never smoker alcohol intake frequency: a few times a week Alcohol type: wine and hard liquor Exam Narrative Exam Narrative: GENERAL: Alert and oriented x three, mild distress HEENT: Head normocephalic, atraumatic, EOMI, pupils reactive, face symmetric, moist mucous membranes NECK: Supple, full range of motion CARDIOVASCULAR: Regular rate and rhythm without murmurs, rubs or gallops. RESPIRATORY: Breath sounds equal bilaterally, no wheezes rales or rhonchi. ABDOMEN: Soft, nontender. Nondistended. Normoactive bowel sounds all 4 quadrants. No guarding or rebound, rigidity, no mass : No CVA tenderness EXTREMITIES: Normal range of motion, no clubbing or edema. Neurovascularly intact NEUROLOGICAL: Cranial nerves II through XII grossly intact. Moving all extremities SKIN: Warm, dry, no petechiae, no rashes or lesions. Initial Vital Signs Initial Vital Signs: Vital Signs Blood Pressure 158/77 H 11/20/24 09:17 Course Orders Ordered: ED Orders 11/20/24 10:03 CT abdomen pelvis w con Stat 11/20/24 10:05 Type and Screen Stat Discontinued Medications Ondansetron HCl (Ondansetron 4 Mg/2 Ml Inj) 4 mg IV NOW PRN PRN Reason: Nausea And Vomiting Ondansetron HCl (Ondansetron 4 Mg Odt) 4 mg PO NOW PRN PRN Reason: Nausea And Vomiting Vital Signs Vital signs: Vital Signs - 8 hr 11/20/24 11:00 11/20/24 11:16 11/20/24 11:16 Pulse Rate 73 82 Respiratory Rate 25 H 17 Blood Pressure 136/69 Pulse Oximetry 98 98 MDM - GI Bleed Lab Data 11/20/24 09:30 11/20/24 09:30 Labs: Lab Results 11/20/24 11/20/24 Range/Units 09:30 10:05 WBC 13.2 H (4.5-11.0) X10^3/uL RBC 4.17 (4.0-5.2) X10^6/uL Hgb 13.0 (12.0-16.0) g/dL Hct 38.8 (36-46) % MCV 93.0 (80-100) fL MCH 31.3 (26-34) PG MCHC 33.6 (30-36) % RDW 13.1 (11.6-14.8) % Plt Count 325 (150-400) X10^3/uL Neut % (Auto) 79.2 H (50-75) % Lymph % (Auto) 11.3 L (25-40) % [place] % (Auto) 8.6 (3-14) % Eos % (Auto) 0.5 L (2-4) % Baso % (Auto) 0.4 (0-2) % Neut # (Auto) 11136 H (6732-3727) /uL Lymph # (Auto) 1500 (5384-3078) /uL [place] # (Auto) 1100 H (0-900) /uL Eos # (Auto) 100 (0-450) /uL Baso # (Auto) 100 (0-100) /uL PT 11.4 (9.4-12.5) SECONDS INR 1.0 (0.9-1.3) APTT 26 (25.1-36.5) SECONDS Sodium 133 L (137-145) mmol/L Potassium 3.7 (3.4-5.1) mmol/L Chloride 102 (98-107) mmol/L Carbon Dioxide 22 (22-32) mmol/L BUN 21 H (7-17) mg/dL Creatinine 1.02 (0.52-1.04) mg/dL Estimated GFR 57 L (>60) mL/min BUN/Creatinine Ratio 20.6 (6-22) Glucose 105 H (70-99) mg/dL Calcium 9.4 (8.4-10.2) mg/dL Total Bilirubin 0.9 (0.2-1.3) mg/dL AST 27 (14-36) IU/L ALT 20 (<35) IU/L Alkaline Phosphatase 96 (38-126) U/L Total Protein 7.1 (6.3-8.2) g/dL Albumin 4.4 (3.5-5.0) g/dL Globulin 2.7 (1.7-4.1) g/dL Albumin/Globulin Ratio 1.6 (1.0-2.8) Lipase 95 (23-300) U/L Blood Type A Positive Antibody Screen Negative MDM Narrative Medical decision making narrative: 74-year-old female with suprapubic discomfort, diarrhea and bright red blood x3 in the past 24 hours. Suspect patient may have a diverticulitis, colitis or similar potential cause of symptoms. Labs and CT abdomen pelvis are obtained. patient has a white count of 13.2 hemoglobin is 13 priors for 12.9 in 11 in 2023 platelets are 325 predominance of neutrophils. Coags are negative, BUN 21 creatinine is 1.02 with a sodium of 133 otherwise appropriate electrolytes glucose of [address] abdomen pelvis distal colitis and proctitis worst in the sigmoid consider colonoscopy to evaluate following clinical treatment as indicated no significant diverticular disease no drainable abscess or ascites. Mild endometrial wall thickening greater than 5 mm correlate with postmenopausal bleeding. Further evaluation could be obtained with the ultrasound if needed. Calcified uterine fibroids are seen. Rim calcified lesion the superior pole without aggressive features in the spleen. Atherosclerotic calcification seen in vessels and lymph nodes. Discussed with the patient appears to have colitis likely causing her bright red stools. Does has a little bit of a white count discussed starting an oral antibiotic, steroids versus watchful waiting and pain medication. After discussion patient notes has a history of C diff is not having similar symptoms at this time but we will avoid antibiotics. We will do a short course of steroid, patient defers anything stronger for pain. We will give contact for colonoscopy. She also notes she has not had any vaginal bleeding but did review her findings, reviewed that there was some thickening of the endometrial wall and if any postmenopausal bleeding she should have dedicated ultrasound through primary care or Gynecology. Discharge Plan Departure Patient Disposition: Home Clinical Impression: Colitis, Acute proctitis, Thickened endometrium Instructions: DI for Colitis Activity Restrictions/Additional Instructions: Your workup today does show changes consistent with colitis/proctitis with the inflammation particularly in the sigmoid area which is consistent with your area of pain. It was recommended after your symptoms have improved to follow up for colonoscopy. Contact is included below to call for set up. If you are having persistent diarrhea whether or not you are having bleeding and you had prior episode of C diff I would recommend follow up testing. If you are diarrhea resolves you do not require testing for C diff. Incidentally was noted you have mild endometrial thickening, if you are having any postmenopausal bleeding is recommended that you have a dedicated pelvic ultrasound with primary care of gynecology. You can take acetaminophen up to a 1000 mg every 6 hours and/or ibuprofen up to 600 mg every 6 hours for pain. Take steroids daily until gone. [facility] [place]. Return for fevers, rapidly worsening pain, increasing bleeding, lightheadedness or passing out, persistent vomiting or other new or concerning changes. Prescriptions: New prednisone 20 mg tablet 40 mg PO DAILY 5 Days Qty: 10 0RF No Action chlorthalidone 50 mg tablet 50 mg PO DAILY Patient Comments: [NO ORIGINAL SIG] lisinopril 20 mg tablet 20 mg PO BID Patient Comments: [NO ORIGINAL SIG] pravastatin 10 mg tablet 10 mg PO DAILY Patient Comments: [NO ORIGINAL SIG] aspirin 81 mg Tablet 81 mg PO DAILY omeprazole 20 mg capsule,delayed release(DR/EC) 20 mg PO DAILY@0600 Patient Comments: [NO ORIGINAL SIG] Referrals: Brian Rao MD [Physician, General Surgery] Stand Alone Forms: Patient Portal/API
[2024-11-20 09:51] LABS: INR 1.0 (0.9-1.3); Prothrombin Time 11.4 SECONDS (9.4-12.5)
[2024-11-20 09:54] LABS: PTT Partial Thromboplastin Tim 26 SECONDS (25.1-36.5)
[2024-11-20 09:55] LABS: Alanine Aminotransferase 20 IU/L (<35); Albumin 4.4 g/dL (3.5-5.0); Albumin Globulin Ratio 1.6 (1.0-2.8); Alkaline Phosphatase 96 U/L (38-126); Blood Urea Nitrogen 21 mg/dL (7-17); Calcium 9.4 mg/dL (8.4-10.2); Carbon Dioxide 22 mmol/L (22-32); Chloride 102 mmol/L (98-107); Estimated Glomerular Filt Rate 57 mL/min (>60); Globulin 2.7 g/dL (1.7-4.1); Glucose 105 mg/dL (70-99); HEMOLYSIS < 15 (0-50); Lipase 95 U/L (23-300); Potassium 3.7 mmol/L (3.4-5.1); Sodium 133 mmol/L (137-145); Total Protein 7.1 g/dL (6.3-8.2)
--- NOTE | 2024-11-20 10:03 | DI.CT.S_ITS ---
PROCEDURE: CT ABDOMEN PELVIS W CON INDICATIONS: BRB per rectum, suprapubic pain, ?sigmoid diverticulitis TECHNIQUE: After the administration of intravenous contrast, axial sections acquired from the lung bases to the pubic symphysis. Coronal and sagittal reformats were performed. For radiation dose reduction, the following was used: automated exposure control, adjustment of mA and/or kV according to patient size. COMPARISON: None. FINDINGS: Image quality: Diagnostic Lower chest: Basal atelectasis. Coronary calcifications. Moderate hiatal hernia. Liver: Unremarkable Gallbladder and biliary system: Unremarkable, nondilated Pancreas: No ductal dilation Spleen: Rim calcified lesion at the superior pole, without aggressive features. No splenomegaly Adrenals: No discrete nodules Kidneys: No solid renal mass. The no hydronephrosis. Vessels and lymph nodes: The main portal vein is patent. Atherosclerotic calcifications are seen. No abdominal aortic aneurysm. Bowel and peritoneum: No small bowel obstruction. Mild rectal submucosal edema and wall thickening. Moderate to severe distal colon and descending colon submucosal edema with wall thickening. There is no drainable abscess or ascites. No significant diverticular disease. Mild surrounding reactive pericolonic edema Body wall: Small fat containing umbilical hernia Pelvis: Unremarkable urinary bladder. Probable fibroids in the uterus. There is endometrial thickening measuring 8-9 mm. Bones: No aggressive appearing osseous abnormality. There are degenerative osseous changes. IMPRESSION: Significant CT findings of distal colitis and proctitis, worst in the sigmoid. Consider colonoscopy correlation to further evaluate following clinical treatment if clinically indicated. No significant diverticular disease. No drainable abscess or ascites. There is mild endometrial thickening greater than 5 mm. Correlate with any postmenopausal bleeding Further evaluation could be obtained with ultrasound if needed. Calcified uterine fibroids are seen. Other findings above. Dictated by: Ramiro Alatorre M.D. on 11/20/2024 at 9:34 Approved by: Ramiro Alatorre M.D. on 11/20/2024 at 9:38
== END 2024-11-20 11:21 | disposition home or self-care (01) ==
PROVIDERS: Emergency Provider Emergency Medicine
DX: K52.9 Noninfective gastroenteritis and colitis, unspecified (principal); K62.89 Other specified diseases of anus and rectum; R93.89 Abnormal findings on diagnostic imaging of other specified body structures
CPT/HCPCS: 36415; 74177; 80053; 83690; 85025; 85610; 85730; 86850; 86900; 86901; 99283; 99284; Q9967

== ENCOUNTER 2024-11-27 07:21 | Day surgery (SDC) | payer MEDICARE, BC, SELFPAY ==
[2023-12-23 00:39] VITALS: BMI 31.3
--- NOTE | 2024-11-27 | PATH_ITS ---
[facility] Accession Number: [id number] No. of containers..01 Tissue . 01 Material submitted: . colon - SIGMOID BIOPSY . 01 Diagnosis: SIGMOID BIOPSY: Hyperplastic polyp. STO 12/03/2024 1314 Local . 01 Electronically signed: . Long Sutton MD, Pathologist NPI- [id number] . 01 Gross description: . SIGMOID BIOPSY: Received in formalin are 4 fragment(s) of gomez, soft tissue measuring 0.3 x 0.3 x 0.3 cm to 0.4 x 0.4 x 0.2 cm submitted entirely in 1 cassette(s) /ANGEL 12/03/2024 1314 Local . 01 Pathologist provided ICD-10: K63.5 . 01 CPT . 391587 Specimen Comment: A courtesy copy of this report has been sent to [facility] Performed at: [address] [facility] [address] [id number], [place], [place] [id number] MD Long Sutton MD Phone: [phone]
[2024-11-27 07:38] VITALS: BMI 30.5
[2024-11-27 07:52] VITALS: BP 156/89; PULSE 94; RESP 16; TEMP 36.2; O2SAT 98
[2024-11-27] MEDS: LACTATED RINGERS 1,000 ML 42 ML IV (07:55)
--- NOTE | 2024-11-27 08:16 | PM.PREOP ---
Pre-operative Note Interval Note History & Physical reviewed/Exam performed by Physician: Yes Changes to H&P: No ASA Class (for procedural sedation): I
[2024-11-27 08:40] VITALS: BP 100/59; PULSE 64; RESP 12; TEMP 36.2; O2SAT 96
[2024-11-27 08:45] VITALS: BP 99/57; PULSE 62; RESP 16; O2SAT 95
[2024-11-27 08:50] VITALS: BP 96/52; PULSE 67; RESP 16; O2SAT 96
--- NOTE | 2024-11-27 08:51 | PM.OP.COLON ---
Operative Date/Time/Diagnoses Date of procedure: 11/27/24 Time of procedure: 08:51 Pre-op diagnosis: proctitis, colitis Post-op diagnosis: same Procedure & Clinicians Study performed: Limited flexible sigmoidoscopy Same procedure(s) as scheduled: Yes Indications: Proctitis, colitis sigmoid, bloody diarrhea Surgeon: Brian Rao Anesthesia Type: MAC +/- Procedure Notes SCOAP/Timeout: Performed Procedure in detail: Patient placed in left lateral recumbent position. Time out was performed. Procedural sedation was administered by anesthesia. Examination began with a thorough inspection of the perianal area. There was no evidence of fissures, fistulae, external hemorrhoids or cutaneous malignancy. The sigmoidoscopy was then placed into the rectum and the lumen was insufflated with minimal carbon dioxide. The rectum and sigmoid colons were edematous and biopsies taken from colon and sigmoid. Mucosal surface did not have characteristic appearance of ulcerative colitis or pseudomembranous colitis. Hard formed stool in rectosigmoid. After biopsies taken, scope withdrawn. ?The colonoscopy was notable for the following: ?1. Quality of the preparation-na ?2. Await biopsy results Scope withdrawal time: na Findings: colitis Specimen(s): other (biopsies rectosigmoid) Complications: none Impression: Proctitis, colitis unclear etiology Biopsies pending. Post-procedure Plan for aftercare: Regular diet Await biopsy results Follow up: as needed Disposition: PACU
[2024-11-27 09:02] VITALS: BP 128/68; PULSE 72; RESP 18; O2SAT 98
== END 2024-11-27 09:45 | disposition home or self-care (01) ==
PROVIDERS: Referring Provider Surgery; Visit Provider Surgery
PROC: 0DJD8ZZ Inspection of Lower Intestinal Tract, Via Natural or Artificial Opening Endoscopic (ICD-10-PCS; CPT 45378; principal; 2024-11-27 08:30)
DX: K62.89 Other specified diseases of anus and rectum (principal); K52.9 Noninfective gastroenteritis and colitis, unspecified; Z79.82 Long term (current) use of aspirin; K63.5 Polyp of colon
CPT/HCPCS: 45331; J2704